=== PATIENT | female | born 1990 | race Caucasian/White ===

== ENCOUNTER 2021-04-08 20:46 | Emergency (ER) | payer BC ==
[2021-04-08] MEDS ORDERED: Mag-Al 1200 mg/1200 mg/30 ML UDCUP ONE (22:47)
[2021-04-08] MEDS ORDERED: Lidocaine Viscous Sol 2% 15 ml UD Cup ONE (22:47)
[2021-04-08] MEDS ORDERED: Ondansetron ODT 4 MG TAB ONE ×2 (22:47→22:48)
[2021-04-09 00:43] LABS: Pregnancy Test - Urine (BHCG) Negative (Negative)
[2021-04-09 00:44] LABS: Pregu Control Background? CLEAR/WHITE (CLR/WHITE); Pregu Control Bar Appear? YES (CONTROL BAR); Specific Gravity 1.019 (1.002-1.036)
== END 2021-04-09 00:56 | disposition home or self-care (01) ==
LOC: ERS 20:46
DX: R09.89 Other specified symptoms and signs involving the circulatory and respiratory systems (principal)
CPT/HCPCS: 81025; 99283; Q0162